=== PATIENT | male | born 1960 | race Caucasian/White ===

== ENCOUNTER → 2020-07-02 09:31 | Outpatient (BNVA) | payer BC, SELFPAY | PROVIDERS: Family Provider Internal Medicine; Visit Provider Family Medicine | DX: Z13.6 Encounter for screening for cardiovascular disorders (principal); Z12.5 Encounter for screening for malignant neoplasm of prostate | CPT/HCPCS: 80053; 80061; 85025; G0103 ==

== ENCOUNTER → 2020-08-05 13:21 | Outpatient (BNVA) | payer BC, SELFPAY | PROVIDERS: Family Provider Internal Medicine; PCP Family Medicine; Visit Provider Podiatrist Foot & Ankle Surgery | DX: M79.671 Pain in right foot (principal); M79.672 Pain in left foot; M72.2 Plantar fascial fibromatosis | CPT/HCPCS: 73630 ==

== ENCOUNTER → 2021-01-14 09:19 | Outpatient (BNVA) | payer BC, SELFPAY | PROVIDERS: Family Provider Internal Medicine; PCP Family Medicine; Visit Provider Podiatrist Foot & Ankle Surgery | DX: S99.922A Unspecified injury of left foot, initial encounter (principal); M77.32 Calcaneal spur, left foot | CPT/HCPCS: 73630 ==

== ENCOUNTER 2021-01-14 11:56 | Outpatient (CLI) | payer BC, SELFPAY | END 2021-01-14 11:57 | disposition home or self-care (01) | LOC: SPT 11:57 | PROVIDERS: Family Provider Internal Medicine; PCP Family Medicine; Visit Provider Podiatrist Foot & Ankle Surgery | DX: Z46.89 Encounter for fitting and adjustment of other specified devices (principal); M72.2 Plantar fascial fibromatosis | CPT/HCPCS: 97760; L4361 ==

== ENCOUNTER 2021-05-11 08:50 | Outpatient (CLI) | payer BC, SELFPAY ==
--- NOTE | 2021-05-11 14:30 | MR_ITS ---
WS: [id number] MRI LEFT FOOT without CONTRAST. COMPARISON: 01/14/2021 radiographs Multiplanar, multisequence imaging is performed without contrast. Very small amount of increased T2 signal involving the subcortical marrow edema at the calcaneal inse rtion site. Plantar fascia measures less than 5 mm. There is a very small amount of perifascial edema . Distal Achilles tendon is normal. No fractures or erosions in the midfoot. No tendinopathy. MR/MR foot LT wo con* [id number] IMPRESSION: Very mild changes of plantar fasciitis. Minimal subcortical marrow edema and pe rifascial edema.
== END 2021-05-11 08:51 | disposition home or self-care (01) ==
LOC: RADSHAW 08:52
PROVIDERS: PCP Family Medicine; Visit Provider Podiatrist Foot & Ankle Surgery
DX: M79.672 Pain in left foot (principal)
CPT/HCPCS: 73718

== ENCOUNTER 2024-09-26 10:43 | Outpatient (CLI) | payer BC, SELFPAY ==
--- NOTE | 2024-09-26 10:50 | XRR_ITS ---
PROCEDURE INFORMATION: Exam: XR Chest Exam date and time: 09/26/2024 10:54 AM Age: 64 years old Clinical indication: Cough; Prior surgery; Surgery date: 6+ months; Surgery type: Rib cartilage removal, gb; Additional info: Chronic cough TECHNIQUE: Imaging protocol: Radiologic exam of the chest. Views: 2 views. COMPARISON: No relevant prior studies available. FINDINGS: Lungs: Mild right basilar linear atelectasis versus scarring. Right basilar calcified granuloma. No consolidation. Pleural spaces: Unremarkable. No pleural effusion. No pneumothorax. Heart/Mediastinum: Cardiomegaly. Bones/joints: Mild degenerative changes along the spine. Intraperitoneal space: Right upper abdomen surgical clips. XR/XR chest 2V* [id number] IMPRESSION: 1. No acute pulmonary findings. 2. Cardiomegaly.
== END 2024-09-26 10:44 | disposition home or self-care (01) ==
LOC: RAD 10:43
PROVIDERS: PCP Family Medicine; Visit Provider Family Medicine
DX: R05.3 Chronic cough (principal); I51.7 Cardiomegaly
CPT/HCPCS: 71046

== ENCOUNTER → 2024-09-27 07:04 | Outpatient (BNVA) | payer BC, SELFPAY | PROVIDERS: PCP Family Medicine; Visit Provider Family Medicine | DX: I51.7 Cardiomegaly (principal); Z00.00 Encounter for general adult medical examination without abnormal findings; Z12.5 Encounter for screening for malignant neoplasm of prostate; R00.1 Bradycardia, unspecified; R05.3 Chronic cough; E78.5 Hyperlipidemia, unspecified | CPT/HCPCS: 80053; 80061; 84443; 85025; 93005; G0103 ==

== ENCOUNTER 2024-10-10 11:10 | Outpatient (CLI) | payer BC, SELFPAY ==
--- NOTE | 2024-10-10 11:15 | USCV_ITS ---
Erick Contreras Age: 64 Gender: M : 1960 Exam Date: 10/10/2024 11:31 Ordering Phys: Kelly Earl MD Technologist: [place] [facility] [place]: BP: 120 / 72 HR: 51 Rhythm: Sinus Technical Quality: Adequate MEASUREMENTS (Male / Female) Normal Values 2D ECHO LVOT Diameter 2.1 cm LV Ejection Fraction MOD 4C 60.2 % LV Ejection Fraction MOD 2C 61.8 % LV Ejection Fraction 2C AL 61.3 % LA Diameter 4.0 cm RA Systolic Volume 4C AL 57.4 ml RA Systolic Volume 4C MOD 56.5 ml LA Sys Volume AL 57.0 cm cubed LA Sys Volume Index AL 26.3 cm cubed/m squared Aorta at Sinotubular Diameter 2.4 cm M-MODE LA Ao Ratio MM 1.4 AV Cusp Separation MM 2.0 cm DOPPLER AV Peak Velocity 116.0 cm/s LVOT Peak Velocity 94.0 cm/s AV Area Cont Eq vti 2.8 cm squared AV Area Cont Eq pk 2.8 cm squared MV Peak Velocity 70.0 cm/s MV Area PHT 4.5 cm squared Mitral E to A Ratio 1.4 TV Peak Velocity 213.0 cm/s TR Peak Velocity 250.0 cm/s TR Peak Gradient 25.0 mmHg TR Mean Velocity 185.0 cm/s TR Mean Gradient 15.7 mmHg TR Velocity Time Integral 81.2 cm TV Peak E Velocity 49.0 cm/s PV Peak Velocity 101.5 cm/s FINDINGS Left Ventricle Normal left ventricular size and systolic function, EF 60%.no regional wall motion abnormalities. Right Ventricle Normal right ventricular size and systolic function. Right Atrium The right atrium is normal in size. Left Atrium The left atrium is normal in size. Mitral Valve Trace mitral valve regurgitation. Aortic Valve Mild aortic valve regurgitation. Tricuspid Valve Trace to mild tricuspid valve regurgitation. Estimated pulmonary artery peak systolic pressure 28 mmHg Pulmonic Valve No gross abnormalities noted Pericardium No pericardial effusion. Aorta Normal ascending aorta dimension. IVC The inferior vena cava appears normal. CONCLUSIONS Normal left ventricular size and systolic function, EF 60%.no regional wall motion abnormalities. Trace mitral valve regurgitation. Mild aortic valve regurgitation. Trace to mild tricuspid valve regurgitation. Estimated pulmonary artery peak systolic pressure 28 mmHg. There is no pericardial effusion. There are no intracardiac masses. No similar previous studies are available for comparison Dr Sacha Thomas MD FAC (Electronically Signed) Final Date: 12 October 2024 18:40 S
== END 2024-10-10 11:11 | disposition home or self-care (01) ==
PROVIDERS: PCP Family Medicine; Visit Provider Family Medicine
DX: I51.7 Cardiomegaly (principal)
CPT/HCPCS: 93306

== ENCOUNTER → 2025-10-08 08:47 | Outpatient (BNVA) | payer BC, SELFPAY | PROVIDERS: PCP Family Medicine; Visit Provider Family Medicine | DX: Z00.00 Encounter for general adult medical examination without abnormal findings (principal); Z12.5 Encounter for screening for malignant neoplasm of prostate | CPT/HCPCS: 80053; 80061; 84443; 85025; G0103 ==